=== PATIENT | male | born 1985 | race African-American/Black ===

== ENCOUNTER 2017-12-06 09:41 | Emergency (ER) | payer OTHER ==
[~2017-12-06] VITALS: Ht 167.6 cm; Wt 77.1 kg
--- NOTE | 2017-12-06 09:23 | Emergency Room Report ---
History of Present Illness General Source: Patient Present Illness HPI Patient is a 32-year-old male brought in by EMS with [employer]. The patient reportedly was in police custody. Patient reports striking his face onto a divider in a police car after becoming frustrated. Patient denies a loss of consciousness. He denies having any recent tetanus vaccine. Patient denied any severe headache or weakness. The patient denies any other locations of pain. Allergies: Coded Allergies: No Known Allergies (Unverified , 12/06/17) Patient History Past Medical History: see triage record Reviewed Nursing Documentation: PMH: Agreed; PSxH: Agreed Review of Systems All Other Systems: limited - by mental status Physical Exam General Appearance: well appearing, no apparent distress, alert, GCS 15 Head: normocephalic, atraumatic ENT: hearing grossly normal, normal voice, other - nasal bridge laceration Neck: full range of motion, supple Respiratory: no respiratory distress, speaking full sentences Gastrointestinal: normal inspection Musculoskeletal: no calf tenderness Neurologic: normal inspection, alert, oriented x3, responsive, normal gait Psychiatric: mood/affect normal Skin: no rash, laceration - nasal bridge laceration 1cm Procedures Laceration/Wound Repair Laceration/Wound Repair : Consent: Verbal Wound Location: face Wound's Depth, Shape: superficial Wound Length (cm): 1 Irrigated w/ Saline (ccs): 20 Betadine Prep?: Yes Anesthesia: Lidocaine w/ Epi Volume Anesthetic (ccs): 3 Wound Debrided: minimal Number of Sutures: 3 Layer Closure?: No Sterile Dressing Applied?: Yes Patient Tolerated: Well Complications: None Medical Decision Making Diagnostic Impression: Primary Impression: Laceration ER Course Patient presented for laceration. Differential diagnoses included foreign body , nerve injury, arterial injury among others. Patient has a benign exam and does not appear to require any further imaging or laboratory testing at this time. Was closed with sutures. Patient was advised wound check in 2-3 days. Patient was medically cleared for booking. The patient does not appear to require any imaging at this time.The patient is advised to follow up with primary care doctor for wound check in 2-3 days. Patient is advised to return if any worsening condition or if any changes in status that are concerning. This report is dictated with [employer] food service representative software which may occasionally lead to discrepancies related to use of this software. Status: improved Disposition: D/C TO LAW ENFORCEMENT IN CUST Condition: Codey Dickson MD Dec 06, 2017 09:23
[2017-12-06 09:30] VITALS: BP 124/80
[2017-12-06] MEDS ORDERED: Lidocaine 1% 10mg/ml/Epi 0.005mg/ml 30ml vial INJ ONE (09:45)
[2017-12-06] MEDS ORDERED: Tetanus/Diptheria/Pertussis Vaccine 0.5ml Syr IM ONE (09:45)
[2017-12-06] MEDS ORDERED: BACITRACIN ZIN1 EACH TOPIC (09:53)
[2017-12-06] MEDS ORDERED: Bacitracin Oint UD TOPIC ONE (10:00)
[2017-12-06 10:04] VITALS: BP 124/80
== END 2017-12-06 10:08 ==
LOC: EDBD 09:41 → EMR 09:55
DX: S01.21XA Laceration without foreign body of nose, initial encounter (principal); W25.XXXA Contact with sharp glass, initial encounter; Y92.89 Other specified places as the place of occurrence of the external cause; Z23 Encounter for immunization
CPT/HCPCS: 90471; 90715; 99283